=== PATIENT | female | born 1965 | race African-American/Black ===

== ENCOUNTER 2019-03-25 18:27 | Observation (INO) ==
[2019-03-25] MEDS ORDERED: NITROGLYCERIN SL 0.4 MG TABLET SL PRN (18:57)
[2019-03-25 19:18] LABS: Basophils # 0.1 10*3/uL (0.0-0.2); Basophils % 1.1 % (0.0-0.8); Hematocrit 44.9 VOL% (35.7-47.0); Hemoglobin 14.4 GM/DL (12.0-16.0); Immature Granulocytes % 0.2 %; Immature Granulocytes Absolute 0.01 #; Lymphocytes # 1.1 10*3/uL (1.4-4.0); Lymphocytes % 24.4 % (21.3-54.2); Mean Corpuscular HGB Conc 32.1 GM/DL (32-36); Mean Corpuscular Volume 81.2 FL (87-102); Mean Platelet Volume 10.6 FL (9.6-12.0); Monocytes % 6.4 % (1.7-12.7); Neutrophils % 67.9 % (38.7-73.9); Platelet Count 254 T/CUMM (130-400); Red Blood Count 5.53 MC/CUMM (3.8-5.5); Red Cell Distribution Width 14.3 % (9.3-17.3); White Blood Count 4.4 T/CUMM (4-12)
[2019-03-25 19:30] LABS: PT Patient Result 10.7 SECS (9.6-12.2)
[2019-03-25 19:37] LABS: Albumin 4.1 G/DL (3.4-5.0); Bilirubin,Total 0.4 MG/DL (0.2-1.0); Calcium 9.5 MG/DL (8.5-10.1); Osmolality,Calculated 278.5 MOS/KG (273-304); Total Protein 7.7 G/DL (6.4-8.3)
[2019-03-25] MEDS ORDERED: hydrALAZINE 20 MG/1 ML VIAL IV STA (20:22)
[2019-03-25] MEDS ORDERED: POTASSIUM CHLORIDE 20 MEQ TABLET PO PRN (21:03)
[2019-03-25] MEDS ORDERED: DEXTROSE 50% 25 GM/50 ML VIAL IV PRN (21:03)
[2019-03-25] MEDS ORDERED: ONDANSETRON 4 MG/2 ML VIAL IV PRN (21:03)
[2019-03-25] MEDS ORDERED: GLUCAGON 1 MG VIAL IM PRN (21:03)
[2019-03-25] MEDS ORDERED: MORPHINE 4 MG/1 ML VIAL IV PRN (21:03)
[2019-03-25] MEDS ORDERED: ACETAMINOPHEN 325 MG TABLET PO PRN (21:03)
[2019-03-25] MEDS ORDERED: amLODIPine 10 MG TABLET PO SCH (23:19)
[2019-03-26] MEDS ORDERED: hydrALAZINE 20 MG/1 ML VIAL IV PRN (00:03)
[2019-03-26 03:16] LABS: Risk Ratio 4.18; VLDL CHOLESTEROL 25.4 MG/DL
[2019-03-26 03:19] LABS: Troponin I < 0.015 NG/ML (0.00-0.045)
[2019-03-26 06:47] LABS: Troponin I < 0.015 NG/ML (0.00-0.045)
[2019-03-26] MEDS ORDERED: amLODIPine 10 MG TABLET PO SCH (09:00)
[2019-03-26 09:07] LABS: Troponin I < 0.015 NG/ML (0.00-0.045)
[2019-03-26] MEDS: amLODIPine 10 MG TABLET PO SCH (09:57)
[2019-03-26] MEDS: ASPIRIN EC 325 MG TABLET PO SCH (09:57)
[2019-03-26] MEDS: PANTOPRAZOLE 40 MG TABLET PO SCH (09:58)
[2019-03-26] MEDS: LISINOPRIL 10 MG TABLET PO SCH (15:09)
[2019-03-27 06:32] LABS: Basophils # 0.1 10*3/uL (0.0-0.2); Basophils % 1.4 % (0.0-0.8); Hematocrit 43.4 VOL% (35.7-47.0); Hemoglobin 13.9 GM/DL (12.0-16.0); Immature Granulocytes % 0.6 %; Immature Granulocytes Absolute 0.02 #; Lymphocytes # 1.9 10*3/uL (1.4-4.0); Lymphocytes % 54.5 % (21.3-54.2); Mean Corpuscular Volume 81.7 FL (87-102); Mean Platelet Volume 11.3 FL (9.6-12.0); Neutrophils % 30.5 % (38.7-73.9); Platelet Count 239 T/CUMM (130-400); Red Blood Count 5.31 MC/CUMM (3.8-5.5); Red Cell Distribution Width 14.6 % (9.3-17.3); White Blood Count 3.5 T/CUMM (4-12)
[2019-03-27 06:51] LABS: Calcium 9.3 MG/DL (8.5-10.1); Osmolality,Calculated 277.5 MOS/KG (273-304)
[2019-03-27 07:12] LABS: Eosinophils 3 % (0-10); Lymphocytes 54 % (20-55); Platelet Estimate Normal; Segmented Neutrophils 32 % (50-85); Total Cells Counted 100
[2019-03-27 08:19] VITALS: BP 140/81
[2019-03-27] MEDS: ASPIRIN EC 325 MG TABLET PO SCH (09:07)
[2019-03-27] MEDS: PANTOPRAZOLE 40 MG TABLET PO SCH (09:07)
[2019-03-27] MEDS: amLODIPine 10 MG TABLET PO SCH (09:07)
[2019-03-27] MEDS: LISINOPRIL 10 MG TABLET PO SCH (09:07)
== END 2019-03-27 11:50 | disposition home or self-care (01) ==
LOC: N.ED 18:27 → N.EDINP 18:27 → N.TELES 21:36
PROVIDERS: ADMIT Hospitalist; ATTEND Hospitalist